=== PATIENT | male | born 1965 | race Caucasian/White ===

== ENCOUNTER 2017-04-14 17:38 | Inpatient (IN) | payer OTHER ==
[~2017-04-14] VITALS: Ht 175.3 cm; Wt 94.5 kg
[2017-04-14 18:11] LABS: HEMATOCRIT 41.9 % (38.0-50.0); MCH 27.7 PG (29.0-34.0); MCHC 34.4 G/DL (30.0-36.0); MCV 80.6 FL (86-99); MEAN PLAT.VOLUME 10.4 uM^3 (9.0-12.4); PLATELET COUNT 219 K/uL (156-360); RBC DIS.WIDTH-CV 12.4 % (11.8-14.6); RBC DIS.WIDTH-SD 35.8 % (39-53); WHITE BLOOD COUNT 7.6 K/uL (4.1-10.2)
[2017-04-14 18:23] LABS: CHLORIDE 106 mEq/L (99-109); POTASSIUM 3.9 mEq/L (3.7-5.4); SODIUM 139 mEq/L (136-147)
[2017-04-14 18:25] LABS: GLUCOSE 117 mg/dL (70-99)
[2017-04-14 18:26] LABS: ANION GAP 11 MEQ/L (2-14)
[2017-04-14 18:29] LABS: GFR ESTIMATE (CALCULATED) > 59 mL/min/
[2017-04-14 18:30] LABS: UREA NITROGEN (BUN) 14 mg/dL (9-23)
[2017-04-14 18:33] LABS: TROP-I INTERPRETATION NEGATIVE; TROPONIN-I < 0.01 ng/mL (0.0-0.30)
[2017-04-14 18:49] LABS: D-DIMER ELISA 0.16 mg/L FEU (< 0.57)
[2017-04-15 00:25] VITALS: BP 117/70
[2017-04-15 00:41] LABS: INTER. NORMALIZED RATIO 1.1; PROTHROMBIN TIME 11.1 (9.2-11.2)
[2017-04-15 00:54] LABS: TROP-I INTERPRETATION NEGATIVE; TROPONIN-I < 0.01 ng/mL (0.0-0.30)
[2017-04-15 03:35] VITALS: BP 102/64
[2017-04-15 06:43] LABS: HEMATOCRIT 40.9 % (38.0-50.0); MCH 27.6 PG (29.0-34.0); MCV 81.2 FL (86-99); MEAN PLAT.VOLUME 10.5 uM^3 (9.0-12.4); PLATELET COUNT 203 K/uL (156-360); RBC DIS.WIDTH-CV 12.5 % (11.8-14.6); RBC DIS.WIDTH-SD 36.3 % (39-53); RED BLOOD COUNT 5.04 M/uL (4.00-5.50); WHITE BLOOD COUNT 8.8 K/uL (4.1-10.2)
[2017-04-15 07:20] LABS: TROP-I INTERPRETATION NEGATIVE; TROPONIN-I < 0.01 ng/mL (0.0-0.30)
[2017-04-15 08:41] LABS: ALKALINE PHOSPHATASE 68 IU/L (3-129); ANION GAP 10 MEQ/L (2-14); CHLORIDE 109 MEQ/L (99-109); GFR ESTIMATE (CALCULATED) > 59 mL/min/; GLUCOSE 101 mg/dL (70-99); SAMPLE HEMOLYSIS CHECK 0; SAMPLE ICTERIC CHECK 0; SAMPLE LIPEMIA CHECK 0; SODIUM 141 MEQ/L (136-147); TOTAL BILIRUBIN 0.6 MG/DL (0.0-1.0); UREA NITROGEN (BUN) 13 mg/dL (9-23)
[2017-04-15 08:49] VITALS: BP 116/74
[2017-04-15 11:36] LABS: HDL CHOLESTEROL 45 MG/DL (Desirable>=40); LDL CHOLESTEROL 115 mg/dL (Desirable<100); NON-HDL CHOLESTEROL 140 mg/dL (Desirable<160); TOTAL CHOLESTEROL 185 mg/dL (Desirable<200); TRIGLYCERIDES 123 MG/DL (Normal: <150)
[2017-04-15 12:03] VITALS: BP 06/65; BP 106/56
[2017-04-15 20:13] VITALS: BP 102/58
[2017-04-16 00:25] VITALS: BP 116/62
[2017-04-16 04:06] VITALS: BP 103/58
[2017-04-16 07:00] VITALS: BP 100/57
[2017-04-16 07:15] LABS: HEMATOCRIT 39.2 % (38.0-50.0); MCH 28.7 PG (29.0-34.0); MCHC 34.7 G/DL (30.0-36.0); MCV 82.7 FL (86-99); MEAN PLAT.VOLUME 10.6 uM^3 (9.0-12.4); PLATELET COUNT 194 K/uL (156-360); RBC DIS.WIDTH-CV 12.7 % (11.8-14.6); RBC DIS.WIDTH-SD 37.5 % (39-53); RED BLOOD COUNT 4.74 M/uL (4.00-5.50); WHITE BLOOD COUNT 8.4 K/uL (4.1-10.2)
[2017-04-16] MEDS ORDERED: LOPRESSOR25 MG PO (08:10)
[2017-04-16] MEDS ORDERED: BRILINTA90 MG PO (08:10)
[2017-04-16] MEDS ORDERED: NITROSTAT0.4 MG SL (08:10)
[2017-04-16] MEDS ORDERED: LISINOPRIL2.5 MG PO (08:10)
[2017-04-16] MEDS ORDERED: ASPIR-LOW81 MG PO (08:10)
[2017-04-16] MEDS ORDERED: ATORVASTATIN CA40 MG PO (08:10)
== END 2017-04-16 10:50 | disposition home or self-care (01) | DRG 247 ==
LOC: EME 17:38 → EDOF 21:59 → 5WEST 21:59 → EDOF 21:59 → 5WEST 23:30 → 4EAST 04-15 19:45
PROVIDERS: Internal Medicine
PROC: B2111ZZ Fluoroscopy of Multiple Coronary Arteries using Low Osmolar Contrast (ICD-10-PCS; principal; 2017-04-15)
PROC: B2151ZZ Fluoroscopy of Left Heart using Low Osmolar Contrast (ICD-10-PCS; principal; 2017-04-15)
PROC: 027034Z Dilation of Coronary Artery, One Artery with Drug-eluting Intraluminal Device, Percutaneous Approach (ICD-10-PCS; principal; 2017-04-15)
PROC: 4A023N7 Measurement of Cardiac Sampling and Pressure, Left Heart, Percutaneous Approach (ICD-10-PCS; principal; 2017-04-15)
DX: I25.110 Atherosclerotic heart disease of native coronary artery with unstable angina pectoris (principal); R00.2 Palpitations; Z82.49 Family history of ischemic heart disease and other diseases of the circulatory system
CPT/HCPCS: 71020; 80048; 80053; 80061; 84484; 85027; 85347; 85379; 85610; 85730; 93005; 93306; 99281; 99284; C1725; C1769; C1874; C1887; G0378; J1644; J2250; J3010; J3246; J7030